=== PATIENT | male | born 2005 | race Caucasian/White ===

== ENCOUNTER 2025-04-04 14:22 | Emergency (ER) | payer OTHER ==
[~2025-04-04] VITALS: Ht 172.7 cm; Wt 76.3 kg
[2025-04-04] MEDS ORDERED: CLAR10CA3 PO (14:43)
[2025-04-04] MEDS ORDERED: TETANUS/DIPHTH/ACEL. PERTUSSIS 0.5 ML SYR IM ONE (16:25)
[2025-04-04] MEDS: LIDOCAINE W/EPINEPHrine 1% 20 ML VIAL SC ONE (16:33)
[2025-04-04 18:25] VITALS: BP 129/69; TEMP 98.5; O2SAT 100
== END 2025-04-04 18:27 | disposition home or self-care (01) ==
LOC: EDBD 14:22 → M ED 14:22
DX: S01.81XA Laceration without foreign body of other part of head, initial encounter (principal); Y92.9 Unspecified place or not applicable; Y93.21 Activity, ice skating; Y99.9 Unspecified external cause status; W01.0XXA Fall on same level from slipping, tripping and stumbling without subsequent striking against object, initial encounter; Z79.899 Other long term (current) drug therapy